=== PATIENT | male | born 1975 | race Caucasian/White ===

== ENCOUNTER 2018-06-19 20:59 | Inpatient (IN) | payer MEDICARE ==
[~2018-06-19] VITALS: Ht 177.8 cm; Wt 86.2 kg
[2018-06-19 21:15] VITALS: BP 144/89
[2018-06-19] MEDS ORDERED: IBUP-1955 PO (21:37)
[2018-06-19] MEDS ORDERED: CEPH-570 PO (21:37)
[2018-06-19] MEDS ORDERED: DOLU50TA PO (21:37)
[2018-06-19] MEDS ORDERED: OXYC-128 PO (21:37)
[2018-06-19] MEDS ORDERED: EMTR1TAB17 PO (21:37)
[2018-06-19] MEDS ORDERED: TAMS-12 PO (21:37)
[2018-06-19 23:00] VITALS: BP 144/89
[2018-06-19] MEDS ORDERED: IBUPROFEN 600 MG TABLET PO PRN (23:00)
[2018-06-19] MEDS ORDERED: ONDANSETRON HCL/PF 4 MG/2 ML VIAL IVP PRN (23:00)
[2018-06-19] MEDS ORDERED: ZOLPIDEM TARTRATE 5 MG TABLET PO PRN (23:00)
[2018-06-19] MEDS ORDERED: MAGNESIUM HYDROXIDE 30 ML UDC PO PRN (23:00)
[2018-06-19] MEDS ORDERED: ACETAMINOPHEN 325 MG TABLET PO PRN (23:00)
[2018-06-19] MEDS: oxyCODONE/APAP (5/325 MG) 1 UDTAB TABLET PO PRN (23:32)
[2018-06-19] MEDS: IV NS 0.9% 1,000 ML IV PRN (23:33)
[2018-06-20 04:00] VITALS: BP 126/75
[2018-06-20] MEDS: oxyCODONE/APAP (5/325 MG) 1 UDTAB TABLET PO PRN ×2 (05:57→12:40)
[2018-06-20 08:00] VITALS: BP 128/8
[2018-06-20 08:16] LABS: BASOPHILS % (AUTO) 0.2 % (0.0-2.0); EOSINOPHILS % (AUTO) 4.5 % (0.0-6.0); HEMATOCRIT 46 % (39-51); HEMOGLOBIN 15.2 g/dL (13.5-17.5); LYMPHOCYTES # (AUTO) 0.4 /CMM (0.8-4.8); LYMPHOCYTES % (AUTO) 5.2 % (20.0-44.0); MEAN CORPUSCULAR HEMOGLOBIN 31 PG (26.0-33.0); MEAN CORPUSCULAR HGB CONC 33 g/dl (31.0-36.0); MEAN CORPUSCULAR VOLUME 94 fL (80-96); MONOCYTES # (AUTO) 0.6 /CMM (0.1-1.30); MONOCYTES % (AUTO) 8.8 % (2.0-12.0); NEUTROPHILS # (AUTO) 5.5 /CMM (1.8-8.9); NEUTROPHILS % (AUTO) 81.3 % (43.0-81.0); PLATELET COUNT (AUTO) 168 /CMM (150-450); RDW COEFFICIENT OF VARIATION 13.6 (11.5-15.0); RED BLOOD CELL COUNT(AUTO) 4.83 MIL/uL (4.5-6.0); WHITE BLOOD COUNT (AUTO) 6.7 K/uL (4.3-11.0)
[2018-06-20 08:50] LABS: ALBUMIN 2.6 g/dL (3.4-5.0); BILIRUBIN,TOTAL 0.9 mg/dL (0.2-1.0); MAGNESIUM 1.8 mg/dL (1.8-2.4); PHOSPHORUS 4.2 mg/dL (2.5-4.9); POTASSIUM 4.7 mmol/L (3.5-5.1); TOTAL PROTEIN, SERUM 6.6 g/dL (6.4-8.2)
[2018-06-20 09:22] LABS: CREATININE 7.5 mg/dL (0.6-1.3)
[2018-06-20 09:23] LABS: THYROID STIMULATING HORMONE 0.646 uIU/mL (0.358-3.74)
[2018-06-20] MEDS ORDERED: MORPHINE SULFATE INJ 2 MG/ML DISP.SYRIN IV ONE (11:30)
[2018-06-20] MEDS ORDERED: MORPHINE SULFATE INJ 4 MG/ML DISP.SYRIN IV ONE (11:30)
[2018-06-20] MEDS: IV NS 0.9% 1,000 ML IV PRN (11:42)
[2018-06-20] MEDS: Emtricitabine/Tenofov Alafenam (Descovy 200-25 mg Tablet PO SCH (11:42)
[2018-06-20 16:00] VITALS: BP 141/81
[2018-06-20] MEDS: MORPHINE SULFATE INJ 4 MG/ML DISP.SYRIN IV PRN ×2 (16:58→21:28)
[2018-06-20 19:20] VITALS: BP 158/98
[2018-06-20 20:00] VITALS: BP 158/92
[2018-06-20] MEDS: QUETIAPINE FUMARATE 100 MG TABLET PO SCH (21:18)
[2018-06-20] MEDS: MIRTAZAPINE 15 MG TABLET PO SCH (21:19)
[2018-06-20] MEDS: TAMSULOSIN 0.4 MG CAP.SR.24H PO SCH (21:19)
[2018-06-20 21:48] LABS: APPEARANCE,URINE CLEAR (CLEAR); BILIRUBIN,URINE NEGATIVE (NEGATIVE); BLOOD, URINE 3+ Ery/uL (NEGATIVE); COLOR,URINE YELLOW (YELLOW); KETONES,URINE NEGATIVE (NEGATIVE); LEUKOCYTE ESTERASE ,URINE NEGATIVE (NEGATIVE); NITRITE, URINE NEGATIVE (NEGATIVE); PH,URINE 5.5 (5.0-8.0); PROTEIN,URINE NEGATIVE (NEGATIVE); UGLUCOSE NEGATIVE (NEGATIVE); UROBILINOGEN,URINE 0.2 EU/dL (0.2)
[2018-06-20 21:57] LABS: BACTERIA,URINE 1+ /HPF (None Seen); CREATININE, URINE 115.8 MG/DL (30.0-125.0); RBC,URINE 21-50 /HPF (0-2); URINE TOTAL PROTEIN 15.8 mg/dL (0-11.9)
[2018-06-20 21:58] LABS: SQUAMOUS EPITHELIAL CELL,UR 0-2 /HPF (None Seen)
[2018-06-20 22:15] LABS: EOSINOPHIL,URINE Rare
[2018-06-21] MEDS: MORPHINE SULFATE INJ 4 MG/ML DISP.SYRIN IV PRN ×4 (01:45→17:52)
[2018-06-21] MEDS: IV NS 0.9% 1,000 ML IV PRN ×2 (02:07→14:29)
[2018-06-21 06:58] LABS: BASOPHILS % (AUTO) 0.2 % (0.0-2.0); EOSINOPHILS % (AUTO) 7.6 % (0.0-6.0); HEMATOCRIT 43 % (39-51); HEMOGLOBIN 14.2 g/dL (13.5-17.5); LYMPHOCYTES # (AUTO) 0.9 /CMM (0.8-4.8); LYMPHOCYTES % (AUTO) 15.4 % (20.0-44.0); MEAN CORPUSCULAR HEMOGLOBIN 31 PG (26.0-33.0); MEAN CORPUSCULAR HGB CONC 33 g/dl (31.0-36.0); MEAN CORPUSCULAR VOLUME 94 fL (80-96); MONOCYTES # (AUTO) 0.9 /CMM (0.1-1.30); MONOCYTES % (AUTO) 16.1 % (2.0-12.0); NEUTROPHILS # (AUTO) 3.4 /CMM (1.8-8.9); NEUTROPHILS % (AUTO) 60.7 % (43.0-81.0); PLATELET COUNT (AUTO) 178 /CMM (150-450); RDW COEFFICIENT OF VARIATION 13.7 (11.5-15.0); RED BLOOD CELL COUNT(AUTO) 4.57 MIL/uL (4.5-6.0); WHITE BLOOD COUNT (AUTO) 5.6 K/uL (4.3-11.0)
[2018-06-21 07:00] LABS: APPEARANCE,URINE SL CLOUDY (CLEAR); BILIRUBIN,URINE NEGATIVE (NEGATIVE); BLOOD, URINE 3+ Ery/uL (NEGATIVE); COLOR,URINE YELLOW (YELLOW); KETONES,URINE NEGATIVE (NEGATIVE); LEUKOCYTE ESTERASE ,URINE NEGATIVE (NEGATIVE); NITRITE, URINE NEGATIVE (NEGATIVE); PH,URINE 5.5 (5.0-8.0); PROTEIN,URINE NEGATIVE (NEGATIVE); UGLUCOSE NEGATIVE (NEGATIVE); UROBILINOGEN,URINE 0.2 EU/dL (0.2)
[2018-06-21 07:18] LABS: ALBUMIN 2.5 g/dL (3.4-5.0); BILIRUBIN,TOTAL 0.8 mg/dL (0.2-1.0); CALCIUM, SERUM 8.1 mg/dL (8.5-10.1); CREATININE 2.7 mg/dL (0.6-1.3); MAGNESIUM 1.9 mg/dL (1.8-2.4); PHOSPHORUS 3.2 mg/dL (2.5-4.9); POTASSIUM 4.7 mmol/L (3.5-5.1); TOTAL PROTEIN, SERUM 6.7 g/dL (6.4-8.2)
[2018-06-21 07:19] LABS: BACTERIA,URINE Few /HPF (None Seen); SQUAMOUS EPITHELIAL CELL,UR Rare /HPF (None Seen)
[2018-06-21 07:23] LABS: CREATININE, URINE 115.7 MG/DL (30.0-125.0); URINE TOTAL PROTEIN 17.4 mg/dL (0-11.9)
[2018-06-21 08:00] VITALS: BP 119/74
[2018-06-21] MEDS: QUETIAPINE FUMARATE 25 MG TABLET PO SCH (08:10)
[2018-06-21] MEDS: Emtricitabine/Tenofov Alafenam (Descovy 200-25 mg Tablet PO SCH (08:10)
[2018-06-21 08:11] LABS: EOSINOPHIL,URINE None Seen
[2018-06-21] MEDS ORDERED: IV NS 0.9% 500 ML IV ONE (11:00)
[2018-06-21 11:26] LABS: EOSINOPHILS % (MANUAL) 3 % (0-4); LYMPHOCYTES % (MANUAL) 18 % (16-48); MONOCYTES % (MANUAL) 12 % (0-11.0); NEUTROPHILS % (MANUAL) 67 (42-76)
[2018-06-21 13:36] VITALS: BP 119/74
[2018-06-21 16:00] VITALS: BP 150/92
[2018-06-21 20:00] VITALS: BP 120/74
[2018-06-21] MEDS: MIRTAZAPINE 15 MG TABLET PO SCH (22:06)
[2018-06-21] MEDS: TAMSULOSIN 0.4 MG CAP.SR.24H PO SCH (22:06)
[2018-06-21] MEDS: oxyCODONE/APAP (5/325 MG) 1 UDTAB TABLET PO PRN (22:07)
[2018-06-21] MEDS: QUETIAPINE FUMARATE 100 MG TABLET PO SCH (22:07)
[2018-06-22 07:23] LABS: BASOPHILS % (AUTO) 0.4 % (0.0-2.0); HEMATOCRIT 45 % (39-51); HEMOGLOBIN 14.9 g/dL (13.5-17.5); LYMPHOCYTES % (AUTO) 24.5 % (20.0-44.0); MEAN CORPUSCULAR HEMOGLOBIN 32 PG (26.0-33.0); MEAN CORPUSCULAR HGB CONC 33 g/dl (31.0-36.0); MEAN CORPUSCULAR VOLUME 95 fL (80-96); MONOCYTES # (AUTO) 0.9 /CMM (0.1-1.30); MONOCYTES % (AUTO) 19.9 % (2.0-12.0); NEUTROPHILS # (AUTO) 1.9 /CMM (1.8-8.9); NEUTROPHILS % (AUTO) 44.2 % (43.0-81.0); PLATELET COUNT (AUTO) 195 /CMM (150-450); RDW COEFFICIENT OF VARIATION 13.4 (11.5-15.0); RED BLOOD CELL COUNT(AUTO) 4.73 MIL/uL (4.5-6.0); WHITE BLOOD COUNT (AUTO) 4.3 K/uL (4.3-11.0)
[2018-06-22 07:38] LABS: CALCIUM, SERUM 9.1 mg/dL (8.5-10.1); CREATININE 1.1 mg/dL (0.6-1.3); POTASSIUM 3.8 mmol/L (3.5-5.1)
[2018-06-22 08:00] VITALS: BP 103/69
[2018-06-22] MEDS: Emtricitabine/Tenofov Alafenam (Descovy 200-25 mg Tablet PO SCH (08:09)
[2018-06-22] MEDS: oxyCODONE/APAP (5/325 MG) 1 UDTAB TABLET PO PRN ×2 (08:10→17:35)
[2018-06-22] MEDS: QUETIAPINE FUMARATE 25 MG TABLET PO SCH (08:14)
[2018-06-22 08:54] LABS: BAND % (MANUAL) 3 % (0.0-5.0); EOSINOPHILS % (MANUAL) 12 % (0-4); LYMPHOCYTES % (MANUAL) 26 % (16-48); MONOCYTES % (MANUAL) 17 % (0-11.0); NEUTROPHILS % (MANUAL) 42 (42-76)
[2018-06-22 12:13] LABS: *SPE A/G RATIO 0.8 (0.7-1.7); *SPE ALBUMIN 2.6 g/dL (2.9-4.4); *SPE ALPHA-1-GLOBULIN 0.4 g/dL (0.0-0.4); *SPE ALPHA-2-GLOBULIN 0.8 g/dL (0.4-1.0); *SPE BETA GLOBULIN 1.1 g/dL (0.7-1.3); *SPE GLOBULIN, TOTAL 3.4 g/dL (2.2-3.9); *SPE M-SPIKE Not Observed g/dL (Not Observed); *SPEGAMMA GLOBULIN 1.1 g/dL (0.4-1.8); PTH, INTACT 40 pg/mL (15-65)
[2018-06-22] MEDS ORDERED: QUET25TA PO (12:33)
[2018-06-22] MEDS ORDERED: MIRT15TA PO (12:33)
[2018-06-22] MEDS ORDERED: QUET100T PO (12:33)
[2018-06-22 16:00] VITALS: BP 109/64
[2018-06-22] MEDS: IV NS 0.9% 1,000 ML IV PRN (17:35)
[2018-06-22 21:00] VITALS: BP 120/75
[2018-06-22] MEDS: QUETIAPINE FUMARATE 100 MG TABLET PO SCH (21:41)
[2018-06-22] MEDS: MIRTAZAPINE 15 MG TABLET PO SCH (21:42)
[2018-06-22] MEDS: TAMSULOSIN 0.4 MG CAP.SR.24H PO SCH (21:42)
[2018-06-23 05:40] VITALS: BP 120/75
[2018-06-23 08:00] VITALS: BP 111/71
[2018-06-23] MEDS: Emtricitabine/Tenofov Alafenam (Descovy 200-25 mg Tablet PO SCH (09:00)
[2018-06-23] MEDS: QUETIAPINE FUMARATE 25 MG TABLET PO SCH (09:00)
[2018-06-23] MEDS: IV NS 0.9% 1,000 ML IV PRN ×2 (14:27→22:06)
[2018-06-23 16:00] VITALS: BP 119/74
[2018-06-23] MEDS: oxyCODONE/APAP (5/325 MG) 1 UDTAB TABLET PO PRN (18:00)
[2018-06-23 20:00] VITALS: BP 112/70
[2018-06-23] MEDS: QUETIAPINE FUMARATE 100 MG TABLET PO SCH (21:34)
[2018-06-23] MEDS: TAMSULOSIN 0.4 MG CAP.SR.24H PO SCH (21:34)
[2018-06-23] MEDS: MIRTAZAPINE 15 MG TABLET PO SCH (21:35)
[2018-06-24] MEDS: oxyCODONE/APAP (5/325 MG) 1 UDTAB TABLET PO PRN (00:15)
[2018-06-24 08:00] VITALS: BP 115/72
[2018-06-24] MEDS: Emtricitabine/Tenofov Alafenam (Descovy 200-25 mg Tablet PO SCH (08:17)
[2018-06-24] MEDS: QUETIAPINE FUMARATE 25 MG TABLET PO SCH (08:23)
[2018-06-24] MEDS: MORPHINE SULFATE INJ 4 MG/ML DISP.SYRIN IV PRN ×2 (08:24→15:19)
[2018-06-24 16:14] VITALS: BP 114/66
[2018-06-24 16:20] VITALS: BP 114/66
== END 2018-06-24 17:00 | disposition home or self-care (01) | DRG 683 ==
LOC: TELE 21:01 → MEDSG1 23:04 → MED 06-20 12:05 → MEDSG2 06-23 18:22
PROVIDERS: ADMIT Nurse Practitioner Acute Care; ATTEND Nurse Practitioner Acute Care
DX: N17.0 Acute kidney failure with tubular necrosis (principal); R45.851 Suicidal ideations; F23 Brief psychotic disorder; F31.5 Bipolar disorder, current episode depressed, severe, with psychotic features; E44.1 Mild protein-calorie malnutrition; N13.2 Hydronephrosis with renal and ureteral calculous obstruction; F19.10 Other psychoactive substance abuse, uncomplicated; B19.20 Unspecified viral hepatitis C without hepatic coma; Z87.891 Personal history of nicotine dependence; Z68.27 Body mass index [BMI] 27.0-27.9, adult
CPT/HCPCS: 36415; 76770-TC; 80048-TC; 80053-TC; 80061-TC; 81000-TC; 82550-TC; 82570-TC; 83735-TC; 83970; 84100-TC; 84155; 84155-TC; 84165; 84300-TC; 84443-TC; 85025-TC; 87081-TC; J2270; J7030; J7040